=== PATIENT | female | born 1995 | race Two or more races ===

== ENCOUNTER 2023-01-14 15:47 | Emergency (ER) | payer OTHER ==
[~2023-01-14] VITALS: Ht 157.5 cm; Wt 89.1 kg
[2023-01-14 16:54] VITALS: PULSE 114; RESP 16; O2SAT 98
[2023-01-14] MEDS ORDERED: MEPERIDINE HCL (50 MG/ML) 1 ML VIAL IM ONE (17:15)
[2023-01-14] MEDS ORDERED: PROMETHAZINE HCL 25 MG/ML 1ML IM ONE (17:15)
[2023-01-14 17:18] VITALS: BP 134/84; PULSE 100; RESP 19
[2023-01-14] MEDS ORDERED: TRAM50TA2 PO (18:11)
== END 2023-01-14 18:15 | disposition home or self-care (01) ==
LOC: ER 15:47
DX: M54.16 Radiculopathy, lumbar region (principal); G89.29 Other chronic pain; M54.50 Low back pain, unspecified; X50.1XXA Overexertion from prolonged static or awkward postures, initial encounter; Y93.01 Activity, walking, marching and hiking; Y92.89 Other specified places as the place of occurrence of the external cause; Y99.8 Other external cause status
CPT/HCPCS: 96372; 99284; J2175; J2550